=== PATIENT | female | born 1980 | race Caucasian/White ===

== ENCOUNTER → 2020-10-14 16:15 | Outpatient (BNVA) | payer SELFPAY | PROVIDERS: Family Provider Family Medicine; Visit Provider Registered Nurse | DX: J02.9 Acute pharyngitis, unspecified (principal) | CPT/HCPCS: 87880 ==

== ENCOUNTER 2021-05-20 12:32 | Outpatient (CLI) | payer BC, SELFPAY ==
--- NOTE | 2021-05-20 12:35 | US_ITS ---
WS: [id number] TRANSVAGINAL PELVIC ULTRASOUND HISTORY: NON CYCLIC PELVIC PAIN/RLQ PAIN COMPARISON: None available. Uterus: 8.3 cm x 7.6 cm x 3.9 cm. Uterus is retroverted. No fibroid or mass. Endometrium: 0.9 cm. Normal homogeneity throughout the endometrium. Right ovary: 4.5 cm x 3.3 cm x 2.5 cm. Normal size and vascularity, no cystic or solid masses. Small follicles throughout the ovary. Normal vascularity. There is a collapsing crenulated corpus luteum cy st in the central ovary. Thick wall cyst measures 2.2 x 1.6 cm. Left ovary: 3.4 cm x 2.4 cm x 4.0 cm. Normal size and vascularity, no cystic or solid masses. Small amount of complex free fluid in the cul-de-sac. US/US transvaginal [id number] IMPRESSION: 1. Normal endometrium. 2. Minimally complex free fluid in the cul-de-sac. Slightly more than physiolo gic and may be due to a ruptured ovarian cyst. 3. Crenulated, collapsing RIGHT corpus luteal cyst.
== END 2021-05-20 12:33 | disposition home or self-care (01) ==
LOC: RAD 12:33
PROVIDERS: Family Provider Family Medicine; PCP Family Medicine; Visit Provider Family Medicine
DX: R10.2 Pelvic and perineal pain (principal); R10.31 Right lower quadrant pain; N83.11 Corpus luteum cyst of right ovary
CPT/HCPCS: 76830

== ENCOUNTER 2022-02-25 06:03 | Outpatient (CLI) | payer BC, SELFPAY ==
--- NOTE | 2022-02-25 | US_ITS ---
WS: [id number] TRANSABDOMINAL PELVIC AND TRANSVAGINAL PELVIC ULTRASOUND HISTORY: RIGHT OVARY CYST COMPARISON: 05/20/2021 Uterus: 8.0 cm x 7.2 cm x 6.2 cm. Normal size retroverted uterus. No fibroid or mass identified. Endometrium: 1.2 cm. Normal endometrium. Normal junctional zone. No increased vascularity. Right ovary: 3.8 cm x 3.3 cm x 2.2 cm. Normal size ovary with normal vascularity. Corpus luteal cyst 2.2 x 2.3 x 1.5 cm. There are additional small follicles. Left ovary: 3.7 cm x 1.8 cm x 3.7 cm. Small peripheral follicles. No solid mass. Normal vascularity. Moderate amount of free fluid. Probably from a collapsed follicle or cyst. US/US pelvic with transvaginal IMPRESSION: 1. Normal endometrium. 2. No ovarian cyst. Physiologic RIGHT corpus luteal cyst. 3. Free fluid in the cul-de-sac.
== END 2022-02-25 06:04 | disposition home or self-care (01) ==
LOC: RAD 06:05
PROVIDERS: Family Provider Family Medicine; PCP Family Medicine; Visit Provider Family Medicine
DX: N83.11 Corpus luteum cyst of right ovary (principal)
CPT/HCPCS: 76830; 76856

== ENCOUNTER → 2022-04-24 15:55 | Outpatient (BNVA) | payer BC, SELFPAY | PROVIDERS: Family Provider Family Medicine; PCP Family Medicine; Visit Provider Nurse Practitioner Family | DX: J02.9 Acute pharyngitis, unspecified (principal); J02.0 Streptococcal pharyngitis | CPT/HCPCS: 87880 ==

== ENCOUNTER 2022-09-18 07:16 | Outpatient (CLI) | payer BC, SELFPAY ==
--- NOTE | 2022-09-18 07:29 | MM_ITS ---
WS: [email or web address] BILATERAL SCREENING DIGITAL TOMOSYNTHESIS MAMMOGRAM WITH CAD HISTORY: SCREENING COMPARISON: None available. Bilateral CC and MLO views with tomosynthesis and synthetic mammography submitted. Computer aided det ection analyzed. Breast composition: There are scattered areas of fibroglandular density. No suspicious masses, microc alcifications or architectural distortion. MM/[place] [id number] IMPRESSION: BI-RADS: 1-Negative FOLLOW UP: 1 Year Follow-up
== END 2022-09-18 07:17 | disposition home or self-care (01) ==
PROVIDERS: PCP Nurse Practitioner Family; Visit Provider Nurse Practitioner Family
DX: Z12.31 Encounter for screening mammogram for malignant neoplasm of breast (principal)
CPT/HCPCS: 77063; 77067

== ENCOUNTER 2024-06-05 08:11 | Outpatient (CLI) | payer OTHER, SELFPAY ==
--- NOTE | 2024-06-05 08:13 | MM_ITS ---
WS: [email or web address] BILATERAL SCREENING DIGITAL TOMOSYNTHESIS MAMMOGRAM WITH CAD HISTORY: SCREENING COMPARISON: 09/18/2022 Bilateral CC and MLO views with tomosynthesis and synthetic mammography submitted. Computer aided detection analyzed. Breast composition: There are scattered areas of fibroglandular density. No suspicious masses, microcalcifications or architectural distortion. Lobulated lymph node upper outer quadrant RIGHT breast is reidentified and stable. No suspicious masses or distortion. MM/MM scr tomosynthesis [id number] IMPRESSION: BI-RADS: 2 - Benign. FOLLOW UP: 1 Year Follow-up
== END 2024-06-05 08:12 | disposition home or self-care (01) ==
LOC: RAD 08:12
PROVIDERS: PCP Family Medicine; Visit Provider Family Medicine
DX: Z12.31 Encounter for screening mammogram for malignant neoplasm of breast (principal); R92.323 Mammographic fibroglandular density, bilateral breasts; R59.0 Localized enlarged lymph nodes
CPT/HCPCS: 77063; 77067